=== PATIENT | female | born 1945 | race Caucasian/White ===

== ENCOUNTER 2018-10-02 12:17 | Emergency (ER) | payer MEDICARE ==
--- NOTE | 2018-10-02 13:17 | RAD ---
RIGHT ELBOW 4 VIEWS: HISTORY: Injury, fall, right elbow pain FINDINGS: Degenerative changes present. No acute fracture or dislocation is identified.
--- NOTE | 2018-10-02 13:24 | RAD ---
RIGHT HIP 2 VIEWS HISTORY: fall right hip pain FINDINGS: A right femoral head prostheses is present in good position and alignment. No evidence of fracture or dislocation or loosening is seen.
--- NOTE | 2018-10-02 13:27 | CT ---
CT BRAIN WITHOUT CONTRAST: HISTORY:Head injury, fall, headache COMPARISON:01/15/2014 FINDINGS: There are foci of decreased attenuation in the periventricular white matter, consistent with chronic small vessel ischemic disease. 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 No evidence of acute infarct, hemorrhage, midline shift or abnormal extra-axial fluid collections is seen. The ventricular size is appropriate and the basilar cisterns are patent. The bony calvarium is intact. The visualized paranasal sinuses and mastoid air cells are well aerated. IMPRESSION: No CT evidence of acute intracranial process.
[2018-10-02] MEDS ORDERED: Adacel (T-DAP) 0.5 ML SYRINGE ONE (13:30)
--- NOTE | 2018-10-02 13:33 | CT ---
CT CERVICAL SPINE WITH CORONAL AND SAGITTAL REFORMATIONS AND NO IV CONTRAST: HISTORY: Fall, neck pain FINDINGS: Multilevel degenerative changes are present. No fracture, subluxation or facet malalignment is identified. No prevertebral soft tissue swelling is apparent. There is a peripherally calcified 1 cm nodule in th e right lobe of the thyroid gland. IMPRESSION: No CT evidence for fracture or traumatic subluxation.
== END 2018-10-02 14:02 ==
LOC: ERS 12:17
DX: S51.012A Laceration without foreign body of left elbow, initial encounter (principal); S51.011A Laceration without foreign body of right elbow, initial encounter; F41.9 Anxiety disorder, unspecified; F32.9 Major depressive disorder, single episode, unspecified; E11.9 Type 2 diabetes mellitus without complications; I10 Essential (primary) hypertension; Z79.899 Other long term (current) drug therapy; W18.30XA Fall on same level, unspecified, initial encounter
CPT/HCPCS: 70450; 72125; 90471; 90715; 94760

== ENCOUNTER 2020-09-12 17:41 | Emergency (ER) | payer MEDICARE ==
[2020-09-12] MEDS ORDERED: Acetaminophen 500 MG TAB ONE (18:26)
== END 2020-09-12 20:15 ==
LOC: ERS 17:41
DX: S32.019A Unspecified fracture of first lumbar vertebra, initial encounter for closed fracture (principal); F03.90 Unspecified dementia, unspecified severity, without behavioral disturbance, psychotic disturbance, mood disturbance, and anxiety; Z79.899 Other long term (current) drug therapy; E11.9 Type 2 diabetes mellitus without complications; I10 Essential (primary) hypertension; G47.00 Insomnia, unspecified; M19.90 Unspecified osteoarthritis, unspecified site; D64.9 Anemia, unspecified; W19.XXXA Unspecified fall, initial encounter
CPT/HCPCS: 70450; 72125; 72131; 93005

== ENCOUNTER 2020-09-28 09:44 | Outpatient (CLI) | payer MEDICARE | END 2020-09-28 09:45 | disposition home or self-care (01) | LOC: TBSIIMAG 09:44 | PROVIDERS: ATTEND Neurological Surgery | DX: S32.009A Unspecified fracture of unspecified lumbar vertebra, initial encounter for closed fracture (principal); M47.816 Spondylosis without myelopathy or radiculopathy, lumbar region | CPT/HCPCS: 72100 ==

== ENCOUNTER 2021-06-19 13:24 | Inpatient (IN) | payer BC, MEDICARE ==
[~2021-06-19 13:24] MED LIST: Iopamidol-370 76% 500 ML 1 ML ONE
[2021-06-19 14:43] LABS: #Basophils 0.1 thou/uL (0.0-0.2); #Eosinphils 0.1 thou/uL (0.0-0.7); #Monocytes 0.7 thou/uL (0.11-0.59); #Neutrophils 6.1 thou/uL (1.40-6.50); %Basophils 0.7 % (0.0-1.0); %Eosinophils 1.4 % (0.0-10.0); %Lymphocytes 22.4 % (21.0-51.0); %Monocytes 7.4 % (0.0-10.0); %Neutrophils 68.2 % (42.0-75.0); Hemoglobin 15.9 g/dL (12.0-16.0); Mean Corpuscular HGB CONC 34.5 g/dL (32.0-36.0); Mean Corpuscular Hemoglobin 31.7 pg (27.0-31.0); Mean Corpuscular Volume 91.9 fL (78.0-98.0); Mean Platelet Volume 6.7 fL (7.4-10.4); Platelet Count 244 thou/uL (130-400); RBC Distribution Width 11.8 % (11.5-14.5); Red Blood Cell (RBC) Count 5.03 mill/uL (4.20-5.40); White Blood Cell (WBC) Count 8.9 thou/uL (4.8-10.8)
[2021-06-19 14:53] LABS: INR-International Normal Ratio 1.1; PTT 36.7 sec (22.9-36.1); Prothrombin Time 14.2 sec (12.0-14.7)
[2021-06-19 15:13] LABS: Acetaminophen Less than 6.0 mcg/mL (10.0-30.0); Alcohol Less than 10 mg/dL (Less than 10); Salicylate Less than 8.0 mg/dL (15.0-30.0)
[2021-06-19 15:14] LABS: ALT (SGPT) 29 U/L (8-55); AST (SGOT) 20 U/L (5-34); Albumin 4.5 g/dL (3.4-4.8); Alkaline Phosphatase 83 U/L (40-110); Anion Gap 13 mmol/L (10-20); BUN (Urea Nitrogen) 16 mg/dL (9.8-20.1); Bilirubin, Total 1.1 mg/dL (0.2-1.2); CK (CPK) 59 U/L (29-168); Calc. Creatinine Clearance 0 mL/min (70-130); Calcium 10.3 mg/dL (7.8-10.44); Carbon Dioxide 27 mmol/L (23-31); Chloride 103 mmol/L (98-107); Globulin 3.4 g/dL (2.4-3.5); Glucose 131 mg/dL (83-110); Potassium 3.4 mmol/L (3.5-5.1); Protein, Total 7.9 g/dL (5.8-8.1); Sodium 140 mmol/L (136-145)
[2021-06-19 15:19] LABS: Bacteria/HPF None Seen HPF (None Seen); Bilirubin Negative (Negative); Blood, Urine Negative (Negative); Clarity Clear (Clear); Glucose, Urine (Dipstick) Normal (Negative); Ketone, Urine 10 mg/dL (Negative); Leukocyte Negative Leu/uL (Negative); Nitrite Negative (Negative); Protein, Urine (Dipstick) 200 mg/dL (Neg-Trace); RBC/HPF 0-3 HPF (0-3); Specific Gravity, Urine 1.028 (1.002-1.036); Squamous Epithelial 0-3 HPF (0-3); Urobilinogen 3 mg/dL (Less than 2); WBC/HPF 0-3 HPF (0-3); pH, Urine 6.5 (5.0-9.0)
[2021-06-19 15:26] LABS: Amphetamine Not Detected (NotDetected); Barbiturates Screen Not Detected (NotDetected); Benzodiazepine Screen Not Detected (NotDetected); Cocaine Metabolite Screen Not Detected (NotDetected); Methadone Not Detected (NotDetected); Methamphetamine Not Detected (NotDetected); Opiate Screen Not Detected (NotDetected); Oxycodone Screen Not Detected (NotDetected); Phencyclidine (PCP) Not Detected (NotDetected); THC/Cannabinoid Screen Not Detected (NotDetected); Tricyclic Screen Not Detected (NotDetected)
[2021-06-19] MEDS ORDERED: Aspirin Chewable 81 MG TAB ONE (17:35)
[2021-06-19] MEDS ORDERED: Ondansetron PF 4 MG/2 ML Vial IVP PRN ×2 (21:30→22:16)
[2021-06-19] MEDS ORDERED: Acetaminophen 325 MG TAB PO PRN (21:30)
[2021-06-19] MEDS ORDERED: Ondansetron ODT 4 MG TAB SL PRN (21:30)
[2021-06-19 22:06] VITALS: BMI 20.5
[2021-06-19] MEDS ORDERED: Labetalol HCl 100 MG/20 ML VIAL SLOW IVP PRN (22:20)
[2021-06-19] MEDS ORDERED: Potassium Chloride 20 MEQ TAB PO SCH (23:30)
[2021-06-19 23:50] LABS: SARS-CoV-2 NAA Rapid Test Not Detected (NotDetected)
[2021-06-20] MEDS: Acetaminophen 325 MG TAB PO PRN ×2 (00:50→10:57)
[2021-06-20 01:01] LABS: Magnesium 1.6 mg/dL (1.6-2.6)
[2021-06-20] MEDS ORDERED: Dextrose 5% in Water 1,000 ML IV PRN (05:05)
[2021-06-20] MEDS ORDERED: Dextrose 50% Abboject 50 ML SYRINGE SLOW IVP PRN (05:05)
[2021-06-20] MEDS ORDERED: HumaLOG 300 UNITS/3 ML VIAL SC PRN (05:05)
[2021-06-20 06:05] LABS: #Eosinphils 0.1 thou/uL (0.0-0.7); #Lymphocytes 1.8 thou/uL (1.20-3.40); #Monocytes 0.7 thou/uL (0.11-0.59); #Neutrophils 5.3 thou/uL (1.40-6.50); %Basophils 0.6 % (0.0-1.0); %Eosinophils 1.8 % (0.0-10.0); %Lymphocytes 22.5 % (21.0-51.0); %Monocytes 8.3 % (0.0-10.0); %Neutrophils 66.9 % (42.0-75.0); Hemoglobin 15.8 g/dL (12.0-16.0); Mean Corpuscular HGB CONC 33.8 g/dL (32.0-36.0); Mean Corpuscular Hemoglobin 31.1 pg (27.0-31.0); Mean Corpuscular Volume 92.1 fL (78.0-98.0); Mean Platelet Volume 6.7 fL (7.4-10.4); Platelet Count 229 thou/uL (130-400); RBC Distribution Width 11.8 % (11.5-14.5); Red Blood Cell (RBC) Count 5.08 mill/uL (4.20-5.40)
[2021-06-20 06:09] LABS: Hemoglobin A1c 6.4 % (4.0-6.0)
[2021-06-20 06:27] LABS: Anion Gap 13 mmol/L (10-20); BUN (Urea Nitrogen) 16 mg/dL (9.8-20.1); Calc. Creatinine Clearance 58 mL/min (70-130); Calcium 9.5 mg/dL (7.8-10.44); Carbon Dioxide 26 mmol/L (23-31); Cardiac Risk 5.6 (Less than 4.5); Chloride 104 mmol/L (98-107); Cholesterol 248 mg/dl (< 200 Desired); Glucose 136 mg/dL (83-110); HDL Cholesterol 44 mg/dL (>60 Neg Risk); LDL Cholesterol, Calculated 174 mg/dL; Magnesium 1.6 mg/dL (1.6-2.6); Potassium 3.2 mmol/L (3.5-5.1); Sodium 140 mmol/L (136-145); Triglycerides 151 mg/dL (Less than 150)
[2021-06-20] MEDS ORDERED: Magnesium Oxide 400 MG TAB PO SCH (08:30)
[2021-06-20] MEDS ORDERED: Potassium Chloride 20 MEQ TAB PO SCH (08:30)
[2021-06-20] MEDS: Enoxaparin Sodium 40 MG/0.4 ML SYRINGE SC SCH (09:29)
[2021-06-20] MEDS ORDERED: Aspirin 300 MG Suppository PR SCH (13:30)
[2021-06-20] MEDS: 1/2 NS w/KCL 20 mEq 1,000 ML IV SCH (14:13)
[2021-06-20] MEDS: Metoprolol Tartrate 25 MG TAB PO SCH (20:23)
[2021-06-20] MEDS: hydrALAZINE 20 MG/ML VIAL SLOW IVP PRN (20:39)
[2021-06-20] MEDS ORDERED: Sterile Water 10 ML VIAL FS PRN (22:45)
[2021-06-20] MEDS ORDERED: OLANZapine 10 MG VIAL IM SCH (22:45)
[2021-06-20] MEDS: Acetaminophen 325 MG Suppository PR PRN (22:53)
[2021-06-21] MEDS: 1/2 NS w/KCL 20 mEq 1,000 ML IV SCH ×3 (01:34→20:31)
[2021-06-21 05:32] LABS: #Basophils 0.1 thou/uL (0.0-0.2); #Eosinphils 0.2 thou/uL (0.0-0.7); #Lymphocytes 2.4 thou/uL (1.20-3.40); #Monocytes 0.8 thou/uL (0.11-0.59); #Neutrophils 5.2 thou/uL (1.40-6.50); %Basophils 0.9 % (0.0-1.0); %Eosinophils 2.2 % (0.0-10.0); %Lymphocytes 27.2 % (21.0-51.0); %Monocytes 9.3 % (0.0-10.0); %Neutrophils 60.4 % (42.0-75.0); Hemoglobin 16.7 g/dL (12.0-16.0); Mean Corpuscular HGB CONC 32.9 g/dL (32.0-36.0); Mean Corpuscular Hemoglobin 30.8 pg (27.0-31.0); Mean Corpuscular Volume 93.7 fL (78.0-98.0); Mean Platelet Volume 6.8 fL (7.4-10.4); Platelet Count 256 thou/uL (130-400); Red Blood Cell (RBC) Count 5.42 mill/uL (4.20-5.40); White Blood Cell (WBC) Count 8.6 thou/uL (4.8-10.8)
[2021-06-21 05:53] LABS: Anion Gap 17 mmol/L (10-20); BUN (Urea Nitrogen) 14 mg/dL (9.8-20.1); Calc. Creatinine Clearance 59 mL/min (70-130); Calcium 9.8 mg/dL (7.8-10.44); Carbon Dioxide 19 mmol/L (23-31); Chloride 107 mmol/L (98-107); Glucose 99 mg/dL (83-110); Magnesium 1.7 mg/dL (1.6-2.6); Potassium 3.8 mmol/L (3.5-5.1); Sodium 139 mmol/L (136-145)
[2021-06-21] MEDS: Aspirin 300 MG Suppository PR SCH (13:52)
[2021-06-21] MEDS: Enoxaparin Sodium 40 MG/0.4 ML SYRINGE SC SCH (13:52)
[2021-06-21] MEDS: Metoprolol Tartrate 25 MG TAB PO SCH ×2 (14:17→20:12)
[2021-06-21] MEDS: Metoprolol Tartrate 5 MG/5 ML VIAL IVP PRN (20:19)
[2021-06-22] MEDS: 1/2 NS w/KCL 20 mEq 1,000 ML IV SCH ×3 (03:44→23:11)
[2021-06-22 06:22] LABS: #Basophils 0.1 thou/uL (0.0-0.2); #Eosinphils 0.2 thou/uL (0.0-0.7); #Lymphocytes 1.8 thou/uL (1.20-3.40); #Monocytes 0.7 thou/uL (0.11-0.59); #Neutrophils 4.3 thou/uL (1.40-6.50); %Basophils 1.1 % (0.0-1.0); %Eosinophils 2.4 % (0.0-10.0); %Lymphocytes 25.9 % (21.0-51.0); %Monocytes 9.5 % (0.0-10.0); %Neutrophils 61.1 % (42.0-75.0); Hemoglobin 15.6 g/dL (12.0-16.0); Mean Corpuscular HGB CONC 33.3 g/dL (32.0-36.0); Mean Corpuscular Hemoglobin 31.2 pg (27.0-31.0); Mean Corpuscular Volume 93.6 fL (78.0-98.0); Mean Platelet Volume 7.1 fL (7.4-10.4); Platelet Count 221 thou/uL (130-400); RBC Distribution Width 11.8 % (11.5-14.5); Red Blood Cell (RBC) Count 5.01 mill/uL (4.20-5.40); White Blood Cell (WBC) Count 6.9 thou/uL (4.8-10.8)
[2021-06-22 06:41] LABS: Anion Gap 15 mmol/L (10-20); BUN (Urea Nitrogen) 18 mg/dL (9.8-20.1); Calc. Creatinine Clearance 52 mL/min (70-130); Calcium 9.3 mg/dL (7.8-10.44); Carbon Dioxide 20 mmol/L (23-31); Glucose 96 mg/dL (83-110); Magnesium 1.6 mg/dL (1.6-2.6)
[2021-06-22 08:05] LABS: Chloride 108 mmol/L (98-107); Sodium 139 mmol/L (136-145)
[2021-06-22] MEDS: Enoxaparin Sodium 40 MG/0.4 ML SYRINGE SC SCH (09:38)
[2021-06-22] MEDS: Aspirin 300 MG Suppository PR SCH (09:39)
[2021-06-22] MEDS: Metoprolol Tartrate 25 MG TAB PO SCH ×2 (09:40→20:58)
[2021-06-22] MEDS: Metoprolol Tartrate 5 MG/5 ML VIAL IVP PRN (10:35)
[2021-06-22] MEDS: hydrALAZINE 20 MG/ML VIAL SLOW IVP PRN (12:22)
[2021-06-23] MEDS: Metoprolol Tartrate 25 MG TAB PO SCH ×2 (08:26→20:04)
[2021-06-23] MEDS: Aspirin 300 MG Suppository PR SCH (08:28)
[2021-06-23] MEDS: Enoxaparin Sodium 40 MG/0.4 ML SYRINGE SC SCH (08:28)
[2021-06-23] MEDS: 1/2 NS w/KCL 20 mEq 1,000 ML IV SCH ×2 (10:09→20:01)
[2021-06-23] MEDS: hydrALAZINE 20 MG/ML VIAL SLOW IVP PRN (16:01)
[2021-06-24] MEDS: Aspirin 300 MG Suppository PR SCH (08:59)
[2021-06-24] MEDS: Enoxaparin Sodium 40 MG/0.4 ML SYRINGE SC SCH (08:59)
[2021-06-24] MEDS: Metoprolol Tartrate 25 MG TAB PO SCH ×2 (10:08→21:25)
[2021-06-24] MEDS: 1/2 NS w/KCL 20 mEq 1,000 ML IV SCH ×2 (11:21→22:23)
[2021-06-25] MEDS ORDERED: Metoprolol Tartrate 5 MG/5 ML VIAL ONE (09:54)
[2021-06-25] MEDS ORDERED: Lidocaine 1% PF 5 ML VIAL ONE (09:54)
[2021-06-25] MEDS ORDERED: PROPOFOL 200 MG/20 ML VIAL ONE (09:54)
[2021-06-25] MEDS ORDERED: Aspirin Chewable 81 MG TAB PER TUBE SCH (12:15)
[2021-06-25] MEDS: Enoxaparin Sodium 40 MG/0.4 ML SYRINGE SC SCH (12:37)
[2021-06-25] MEDS: Metoprolol Tartrate 25 MG TAB PO SCH ×2 (13:23→21:05)
[2021-06-25] MEDS: Pantoprazole 40 MG VIAL IVP SCH (13:24)
[2021-06-25] MEDS: Aspirin 300 MG Suppository PR SCH (15:00)
[2021-06-25] MEDS: 1/2 NS w/KCL 20 mEq 1,000 ML IV SCH ×2 (15:00→15:03)
[2021-06-26 05:09] LABS: #Eosinphils 0.1 thou/uL (0.0-0.7); #Lymphocytes 2.2 thou/uL (1.20-3.40); #Monocytes 0.7 thou/uL (0.11-0.59); #Neutrophils 4.8 thou/uL (1.40-6.50); %Basophils 0.4 % (0.0-1.0); %Eosinophils 1.8 % (0.0-10.0); %Lymphocytes 28.4 % (21.0-51.0); %Monocytes 8.6 % (0.0-10.0); %Neutrophils 60.7 % (42.0-75.0); Hemoglobin 15.2 g/dL (12.0-16.0); Mean Corpuscular HGB CONC 33.1 g/dL (32.0-36.0); Mean Corpuscular Hemoglobin 31.5 pg (27.0-31.0); Mean Corpuscular Volume 95.1 fL (78.0-98.0); Mean Platelet Volume 7.9 fL (7.4-10.4); Platelet Count 204 thou/uL (130-400); RBC Distribution Width 11.6 % (11.5-14.5); Red Blood Cell (RBC) Count 4.84 mill/uL (4.20-5.40); White Blood Cell (WBC) Count 7.9 thou/uL (4.8-10.8)
[2021-06-26 05:24] LABS: Anion Gap 10 mmol/L (10-20); BUN (Urea Nitrogen) 18 mg/dL (9.8-20.1); Calc. Creatinine Clearance 61 mL/min (70-130); Calcium 9.1 mg/dL (7.8-10.44); Carbon Dioxide 27 mmol/L (23-31); Chloride 106 mmol/L (98-107); Glucose 113 mg/dL (83-110); Magnesium 1.8 mg/dL (1.6-2.6); Phosphorus 3.1 mg/dL (2.3-4.7); Potassium 3.6 mmol/L (3.5-5.1); Sodium 139 mmol/L (136-145)
[2021-06-26] MEDS ORDERED: Potassium Chloride 20 MEQ TAB PER TUBE SCH (08:15)
[2021-06-26] MEDS ORDERED: Magnesium Sulfate 2 GM in Sodium Chloride 0.9% 100 ML IVPB SCH (08:15)
[2021-06-26] MEDS ORDERED: Magnesium 2 GM/50 ML 2 GM in Premix Bag 1 BAG IVPB SCH (09:00)
[2021-06-26] MEDS ORDERED: Aspirin Chewable 81 MG TAB PER TUBE SCH (09:00)
[2021-06-26] MEDS: Metoprolol Tartrate 25 MG TAB PO SCH ×2 (09:21→22:24)
[2021-06-26] MEDS: HumaLOG 300 UNITS/3 ML VIAL SC PRN ×2 (11:08→17:22)
[2021-06-26] MEDS: Pantoprazole 40 MG VIAL IVP SCH (11:09)
[2021-06-26 14:43] LABS: SARS-CoV-2 PCR by NAA Not Detected (NotDetected)
[2021-06-26] MEDS: 1/2 NS w/KCL 20 mEq 1,000 ML IV SCH (15:17)
[2021-06-26] MEDS: D5W-AA 4.25% with LYTES 1,000 ML IV SCH (21:55)
[2021-06-27 05:45] LABS: #Eosinphils 0.2 thou/uL (0.0-0.7); #Monocytes 0.7 thou/uL (0.11-0.59); #Neutrophils 4.2 thou/uL (1.40-6.50); %Basophils 0.7 % (0.0-1.0); %Eosinophils 2.8 % (0.0-10.0); %Lymphocytes 28.5 % (21.0-51.0); %Monocytes 9.1 % (0.0-10.0); %Neutrophils 58.9 % (42.0-75.0); Hemoglobin 14.4 g/dL (12.0-16.0); Mean Corpuscular HGB CONC 32.7 g/dL (32.0-36.0); Mean Corpuscular Hemoglobin 31.7 pg (27.0-31.0); Mean Corpuscular Volume 96.7 fL (78.0-98.0); Mean Platelet Volume 7.4 fL (7.4-10.4); Platelet Count 194 thou/uL (130-400); RBC Distribution Width 11.6 % (11.5-14.5); Red Blood Cell (RBC) Count 4.54 mill/uL (4.20-5.40); White Blood Cell (WBC) Count 7.1 thou/uL (4.8-10.8)
[2021-06-27] MEDS: HumaLOG 300 UNITS/3 ML VIAL SC PRN ×2 (06:15→11:30)
[2021-06-27 06:16] LABS: Anion Gap 12 mmol/L (10-20); BUN (Urea Nitrogen) 16 mg/dL (9.8-20.1); Calc. Creatinine Clearance 61 mL/min (70-130); Calcium 9.1 mg/dL (7.8-10.44); Carbon Dioxide 29 mmol/L (23-31); Chloride 103 mmol/L (98-107); Glucose 164 mg/dL (83-110); Potassium 3.8 mmol/L (3.5-5.1); Sodium 140 mmol/L (136-145)
[2021-06-27] MEDS: Aspirin 300 MG Suppository PR SCH (08:31)
[2021-06-27] MEDS: Metoprolol Tartrate 25 MG TAB PO SCH ×2 (08:32→21:01)
[2021-06-27] MEDS: Pantoprazole 40 MG VIAL IVP SCH (11:30)
[2021-06-27] MEDS: D5W-AA 4.25% with LYTES 1,000 ML IV SCH (12:44)
[2021-06-27] MEDS: Labetalol HCl 100 MG/20 ML VIAL SLOW IVP PRN (22:10)
[2021-06-28] MEDS: D5W-AA 4.25% with LYTES 1,000 ML IV SCH ×2 (03:16→18:04)
[2021-06-28 05:44] LABS: #Eosinphils 0.2 thou/uL (0.0-0.7); #Lymphocytes 2.1 thou/uL (1.20-3.40); #Monocytes 0.7 thou/uL (0.11-0.59); #Neutrophils 4.3 thou/uL (1.40-6.50); %Basophils 0.5 % (0.0-1.0); %Eosinophils 2.8 % (0.0-10.0); %Lymphocytes 28.2 % (21.0-51.0); %Monocytes 10.1 % (0.0-10.0); %Neutrophils 58.5 % (42.0-75.0); Hemoglobin 14.5 g/dL (12.0-16.0); Mean Corpuscular HGB CONC 32.8 g/dL (32.0-36.0); Mean Corpuscular Hemoglobin 31.4 pg (27.0-31.0); Mean Corpuscular Volume 95.9 fL (78.0-98.0); Mean Platelet Volume 7.7 fL (7.4-10.4); Platelet Count 192 thou/uL (130-400); RBC Distribution Width 11.6 % (11.5-14.5); Red Blood Cell (RBC) Count 4.61 mill/uL (4.20-5.40); White Blood Cell (WBC) Count 7.3 thou/uL (4.8-10.8)
[2021-06-28] MEDS: HumaLOG 300 UNITS/3 ML VIAL SC PRN ×3 (05:48→17:27)
[2021-06-28 06:39] LABS: Anion Gap 10 mmol/L (10-20); BUN (Urea Nitrogen) 19 mg/dL (9.8-20.1); Calc. Creatinine Clearance 60 mL/min (70-130); Calcium 9.5 mg/dL (7.8-10.44); Carbon Dioxide 32 mmol/L (23-31); Chloride 101 mmol/L (98-107); Glucose 182 mg/dL (83-110); Potassium 4.1 mmol/L (3.5-5.1); Sodium 139 mmol/L (136-145)
[2021-06-28] MEDS: Aspirin 300 MG Suppository PR SCH (08:43)
[2021-06-28] MEDS: Metoprolol Tartrate 25 MG TAB PO SCH ×2 (08:44→20:57)
[2021-06-28] MEDS: Pantoprazole 40 MG VIAL IVP SCH (12:51)
[2021-06-28] MEDS: Nystatin 500,000 UNITS/5 ML UDCUP SSW SCH ×3 (14:34→20:57)
[2021-06-28] MEDS: Acetaminophen 325 MG Suppository PR PRN (17:16)
[2021-06-28] MEDS ORDERED: Nystatin 500,000 UNITS/5 ML UDCUP ONE (20:55)
[2021-06-28] MEDS: Labetalol HCl 100 MG/20 ML VIAL SLOW IVP PRN (20:57)
[2021-06-29] MEDS: HumaLOG 300 UNITS/3 ML VIAL SC PRN ×2 (06:11→17:33)
[2021-06-29] MEDS: Aspirin 300 MG Suppository PR SCH (09:09)
[2021-06-29] MEDS: Nystatin 500,000 UNITS/5 ML UDCUP SSW SCH ×4 (09:09→20:31)
[2021-06-29] MEDS: Metoprolol Tartrate 25 MG TAB PO SCH ×2 (09:10→20:39)
[2021-06-29] MEDS ORDERED: AA 4.25 %/CALCIUM/LYTES/D5W 2,000 ML IV SCH (11:30)
[2021-06-29] MEDS: Pantoprazole 40 MG VIAL IVP SCH (12:31)
[2021-06-29] MEDS: Metoprolol Tartrate 5 MG/5 ML VIAL IVP PRN (17:33)
[2021-06-29] MEDS: Bisacodyl 10 MG SUPP PR SCH (20:30)
[2021-06-30 05:25] LABS: #Basophils 0.1 thou/uL (0.0-0.2); #Eosinphils 0.2 thou/uL (0.0-0.7); #Lymphocytes 1.9 thou/uL (1.20-3.40); #Monocytes 0.7 thou/uL (0.11-0.59); #Neutrophils 4.8 thou/uL (1.40-6.50); %Basophils 0.8 % (0.0-1.0); %Eosinophils 3.1 % (0.0-10.0); %Lymphocytes 24.6 % (21.0-51.0); %Monocytes 8.5 % (0.0-10.0); Hemoglobin 14.8 g/dL (12.0-16.0); Mean Corpuscular Hemoglobin 31.3 pg (27.0-31.0); Mean Corpuscular Volume 94.9 fL (78.0-98.0); Mean Platelet Volume 7.6 fL (7.4-10.4); Platelet Count 233 thou/uL (130-400); RBC Distribution Width 11.6 % (11.5-14.5); Red Blood Cell (RBC) Count 4.74 mill/uL (4.20-5.40); White Blood Cell (WBC) Count 7.6 thou/uL (4.8-10.8)
[2021-06-30 05:43] LABS: ALT (SGPT) 37 U/L (8-55); AST (SGOT) 31 U/L (5-34); Albumin 3.8 g/dL (3.4-4.8); Alkaline Phosphatase 74 U/L (40-110); Anion Gap 10 mmol/L (10-20); BUN (Urea Nitrogen) 23 mg/dL (9.8-20.1); Bilirubin, Total 0.8 mg/dL (0.2-1.2); Calc. Creatinine Clearance 59 mL/min (70-130); Calcium 9.7 mg/dL (7.8-10.44); Carbon Dioxide 29 mmol/L (23-31); Chloride 102 mmol/L (98-107); Glucose 180 mg/dL (83-110); Magnesium 1.9 mg/dL (1.6-2.6); Phosphorus 4.2 mg/dL (2.3-4.7); Protein, Total 6.8 g/dL (5.8-8.1); Sodium 137 mmol/L (136-145)
[2021-06-30] MEDS ORDERED: Metoprolol Tartrate 5 MG/5 ML VIAL ONE (09:32)
[2021-06-30] MEDS ORDERED: Lidocaine 1% PF 5 ML VIAL ONE (09:32)
[2021-06-30] MEDS ORDERED: PROPOFOL 200 MG/20 ML VIAL ONE (09:32)
[2021-06-30] MEDS ORDERED: Aspirin Chewable 81 MG TAB PER TUBE SCH (11:15)
[2021-06-30] MEDS: Aspirin 300 MG Suppository PR SCH (11:53)
[2021-06-30] MEDS: Nystatin 500,000 UNITS/5 ML UDCUP SSW SCH ×4 (12:27→21:06)
[2021-06-30] MEDS: Metoprolol Tartrate 25 MG TAB PO SCH ×2 (12:40→21:06)
[2021-06-30] MEDS: Pantoprazole 40 MG VIAL IVP SCH (12:41)
[2021-06-30] MEDS: Acetaminophen 325 MG/10.15 ML UDCUP PER TUBE PRN ×2 (12:51→22:36)
[2021-06-30] MEDS ORDERED: Morphine 4 MG/ML VIAL SLOW IVP PRN (14:43)
[2021-06-30] MEDS: Bisacodyl 10 MG SUPP PR SCH (21:06)
[2021-06-30] MEDS: Atorvastatin Calcium 40 MG TAB PO SCH (21:06)
[2021-07-01] MEDS: Nystatin 500,000 UNITS/5 ML UDCUP SSW SCH ×4 (09:44→20:57)
[2021-07-01] MEDS: Aspirin Chewable 81 MG TAB PER TUBE SCH (09:45)
[2021-07-01] MEDS: Metoprolol Tartrate 25 MG TAB PO SCH ×2 (09:45→20:57)
[2021-07-01] MEDS: Pantoprazole 40 MG VIAL IVP SCH (13:37)
[2021-07-01] MEDS: Atorvastatin Calcium 40 MG TAB PO SCH (20:57)
[2021-07-01] MEDS: Bisacodyl 10 MG SUPP PR SCH (21:39)
[2021-07-02] MEDS: HumaLOG 300 UNITS/3 ML VIAL SC PRN (06:23)
[2021-07-02] MEDS: Aspirin Chewable 81 MG TAB PER TUBE SCH (09:46)
[2021-07-02] MEDS: Nystatin 500,000 UNITS/5 ML UDCUP SSW SCH ×4 (09:46→20:58)
[2021-07-02] MEDS: Metoprolol Tartrate 25 MG TAB PO SCH ×2 (09:47→20:57)
[2021-07-02] MEDS: Lansoprazole 3 MG/ML ORAL SUSPENSION PER TUBE SCH (13:03)
[2021-07-02] MEDS: Atorvastatin Calcium 40 MG TAB PO SCH (20:57)
[2021-07-02] MEDS: Bisacodyl 10 MG SUPP PR SCH (20:57)
[2021-07-03 05:39] LABS: Hemoglobin 14.1 g/dL (12.0-16.0); Mean Corpuscular HGB CONC 31.6 g/dL (32.0-36.0); Mean Corpuscular Hemoglobin 30.1 pg (27.0-31.0); Mean Corpuscular Volume 95.5 fL (78.0-98.0); Mean Platelet Volume 8.1 fL (7.4-10.4); Platelet Count 226 thou/uL (130-400); RBC Distribution Width 11.8 % (11.5-14.5); Red Blood Cell (RBC) Count 4.68 mill/uL (4.20-5.40); White Blood Cell (WBC) Count 8.4 thou/uL (4.8-10.8)
[2021-07-03 06:08] LABS: Anion Gap 14 mmol/L (10-20); BUN (Urea Nitrogen) 21 mg/dL (9.8-20.1); Calc. Creatinine Clearance 56 mL/min (70-130); Calcium 9.6 mg/dL (7.8-10.44); Carbon Dioxide 27 mmol/L (23-31); Chloride 101 mmol/L (98-107); Glucose 191 mg/dL (83-110); Potassium 3.8 mmol/L (3.5-5.1); Sodium 138 mmol/L (136-145)
[2021-07-03] MEDS: HumaLOG 300 UNITS/3 ML VIAL SC PRN ×2 (06:30→14:09)
[2021-07-03 07:48] LABS: Magnesium 1.7 mg/dL (1.6-2.6); Phosphorus 3.9 mg/dL (2.3-4.7)
[2021-07-03] MEDS: Amlodipine 5 MG TAB PO SCH (09:05)
[2021-07-03] MEDS: Nystatin 500,000 UNITS/5 ML UDCUP SSW SCH ×4 (09:06→21:52)
[2021-07-03] MEDS: Metoprolol Tartrate 25 MG TAB PO SCH ×2 (09:06→21:52)
[2021-07-03] MEDS: Aspirin Chewable 81 MG TAB PER TUBE SCH (09:06)
[2021-07-03] MEDS: Lansoprazole 3 MG/ML ORAL SUSPENSION PER TUBE SCH (10:10)
[2021-07-03] MEDS ORDERED: Docusate Sodium 100 MG/10 ML UDCUP PO PRN (12:21)
[2021-07-03 17:15] LABS: SARS-CoV-2 PCR by NAA Not Detected (NotDetected)
[2021-07-03] MEDS: Bisacodyl 10 MG SUPP PR SCH (21:52)
[2021-07-03] MEDS: Atorvastatin Calcium 40 MG TAB PO SCH (21:52)
[2021-07-04 05:10] LABS: Hemoglobin 13.6 g/dL (12.0-16.0); Mean Corpuscular HGB CONC 32.5 g/dL (32.0-36.0); Mean Corpuscular Volume 95.4 fL (78.0-98.0); Mean Platelet Volume 7.7 fL (7.4-10.4); Platelet Count 261 thou/uL (130-400); RBC Distribution Width 11.6 % (11.5-14.5); Red Blood Cell (RBC) Count 4.37 mill/uL (4.20-5.40); White Blood Cell (WBC) Count 7.9 thou/uL (4.8-10.8)
[2021-07-04 05:36] LABS: Anion Gap 10 mmol/L (10-20); BUN (Urea Nitrogen) 19 mg/dL (9.8-20.1); Calc. Creatinine Clearance 52 mL/min (70-130); Calcium 9.6 mg/dL (7.8-10.44); Carbon Dioxide 32 mmol/L (23-31); Chloride 101 mmol/L (98-107); Glucose 185 mg/dL (83-110); Magnesium 1.9 mg/dL (1.6-2.6); Phosphorus 4.2 mg/dL (2.3-4.7); Potassium 3.8 mmol/L (3.5-5.1); Sodium 139 mmol/L (136-145)
[2021-07-04] MEDS: HumaLOG 300 UNITS/3 ML VIAL SC PRN ×3 (06:23→17:21)
[2021-07-04] MEDS: Lansoprazole 3 MG/ML ORAL SUSPENSION PER TUBE SCH (09:09)
[2021-07-04] MEDS: Metoprolol Tartrate 25 MG TAB PO SCH ×2 (09:09→21:52)
[2021-07-04] MEDS: Amlodipine 5 MG TAB PO SCH (09:10)
[2021-07-04] MEDS: Nystatin 500,000 UNITS/5 ML UDCUP SSW SCH ×4 (09:10→21:52)
[2021-07-04] MEDS: Aspirin Chewable 81 MG TAB PER TUBE SCH (09:10)
[2021-07-04] MEDS: Atorvastatin Calcium 40 MG TAB PO SCH (21:52)
[2021-07-04] MEDS: Bisacodyl 10 MG SUPP PR SCH (21:52)
[2021-07-05] MEDS: Labetalol HCl 100 MG/20 ML VIAL SLOW IVP PRN (05:31)
[2021-07-05] MEDS: HumaLOG 300 UNITS/3 ML VIAL SC PRN (05:57)
[2021-07-05] MEDS: Metoprolol Tartrate 25 MG TAB PO SCH (09:41)
[2021-07-05] MEDS: Nystatin 500,000 UNITS/5 ML UDCUP SSW SCH ×2 (09:41→13:28)
[2021-07-05] MEDS: Aspirin Chewable 81 MG TAB PER TUBE SCH (09:41)
[2021-07-05] MEDS: Amlodipine 5 MG TAB PO SCH (09:43)
[2021-07-05] MEDS: Lansoprazole 3 MG/ML ORAL SUSPENSION PER TUBE SCH (09:49)
[2021-07-05] MEDS: Acetaminophen 325 MG/10.15 ML UDCUP PER TUBE PRN (11:48)
[2021-07-05 12:13] VITALS: BP 145/78; TEMP 98.9
== END 2021-07-05 13:15 | DRG 64 ==
LOC: ERS 13:24 → ERHOLD 17:48 → NEURO 21:32 → OBSVTOIN 06-20 12:54
PROVIDERS: ADMIT Internal Medicine; ATTEND Internal Medicine
PROC: 0DJ08ZZ Inspection of Upper Intestinal Tract, Via Natural or Artificial Opening Endoscopic (ICD-10-PCS; 2021-06-25)
PROC: 0DH63UZ Insertion of Feeding Device into Stomach, Percutaneous Approach (ICD-10-PCS; principal; 2021-06-30)
DX: I63.9 Cerebral infarction, unspecified (principal); Z66 Do not resuscitate; R29.707 NIHSS score 7; Z20.822 Contact with and (suspected) exposure to COVID-19; G93.41 Metabolic encephalopathy; I47.1 Supraventricular tachycardia; L76.02 Intraoperative hemorrhage and hematoma of skin and subcutaneous tissue complicating other procedure; F03.90 Unspecified dementia, unspecified severity, without behavioral disturbance, psychotic disturbance, mood disturbance, and anxiety; I10 Essential (primary) hypertension; R47.81 Slurred speech; R29.810 Facial weakness; K29.80 Duodenitis without bleeding; R13.12 Dysphagia, oropharyngeal phase; Y84.8 Other medical procedures as the cause of abnormal reaction of the patient, or of later complication, without mention of misadventure at the time of the procedure; M19.90 Unspecified osteoarthritis, unspecified site; G47.00 Insomnia, unspecified; E87.6 Hypokalemia; E11.65 Type 2 diabetes mellitus with hyperglycemia; R21 Rash and other nonspecific skin eruption; Z53.8 Procedure and treatment not carried out for other reasons; E83.42 Hypomagnesemia; D73.5 Infarction of spleen; Z78.1 Physical restraint status; Z86.73 Personal history of transient ischemic attack (TIA), and cerebral infarction without residual deficits; Z79.899 Other long term (current) drug therapy; Z88.8 Allergy status to other drugs, medicaments and biological substances; Z90.89 Acquired absence of other organs
CPT/HCPCS: 36415; 36416; 70496; 70498; 70551; 71045; 74018; 74177; 74230; 80048; 80053; 80061; 80306; 80307; 81003; 81015; 82140; 82550; 82607; 82746; 83036; 83735; 84100; 84443; 84484; 85025; 85027; 85610; 85730; 86850; 86900; 86901; 87086; 93005; 93306; 95712; 95819; 95957; 96372; C9113; G0378; J0360; J1650; J1815; J2358; J2704; J3475; J3480; Q9967; U0002; U0003; U0005

== ENCOUNTER 2023-10-23 08:06 | Outpatient (CLI) | payer MEDICARE | END 2023-10-23 08:07 | disposition home or self-care (01) | LOC: CT 08:06 | PROVIDERS: ATTEND Physician Assistant Medical | DX: Z43.1 Encounter for attention to gastrostomy (principal); R13.12 Dysphagia, oropharyngeal phase; R11.2 Nausea with vomiting, unspecified; R05.9 Cough, unspecified; K82.8 Other specified diseases of gallbladder; N20.0 Calculus of kidney | CPT/HCPCS: 71260; 74177; 82565 ==

== ENCOUNTER 2024-02-06 06:35 | Day surgery (SDC) | payer MEDICARE ==
[2024-01-24 12:56] VITALS: BMI 21.4
[2024-02-06] MEDS ORDERED: LevoFLOXacin D5W 500 mg (100 mL) BAG ONE (07:39)
[2024-02-06] MEDS ORDERED: fentaNYL 50 mcg/mL 1 mL Vial ONE (08:09)
[2024-02-06] MEDS ORDERED: PROPOFOL 20 ML ONE (08:11)
[2024-02-06] MEDS ORDERED: Ondansetron PF 4 MG/2 ML Vial ONE (08:57)
[2024-02-06] MEDS ORDERED: PHENYLEPHRINE-NS 100 MCG/ML 10 ML SYRINGE ONE (08:57)
[2024-02-06] MEDS ORDERED: diphenhydrAMINE 50 MG/ML VIAL ONE (09:56)
[2024-02-06] MEDS ORDERED: Iopamidol 30 ML ONE (10:15)
[2024-02-06] MEDS ORDERED: Phenazopyridine HCl 100 MG TAB ONE (10:47)
[2024-02-06] MEDS ORDERED: Oxybutynin 5 MG TAB ONE (10:47)
== END 2024-02-06 14:30 ==
LOC: SDC 06:35
PROVIDERS: ATTEND Urology
PROC: 0TC78ZZ Extirpation of Matter from Left Ureter, Via Natural or Artificial Opening Endoscopic (ICD-10-PCS; principal; 2024-02-06)
PROC: 0T778DZ Dilation of Left Ureter with Intraluminal Device, Via Natural or Artificial Opening Endoscopic (ICD-10-PCS; 2024-02-06)
DX: N20.0 Calculus of kidney (principal); D64.9 Anemia, unspecified; F41.9 Anxiety disorder, unspecified; E11.9 Type 2 diabetes mellitus without complications; F32.A Depression, unspecified; K21.9 Gastro-esophageal reflux disease without esophagitis; I10 Essential (primary) hypertension; E78.00 Pure hypercholesterolemia, unspecified; G47.00 Insomnia, unspecified; F03.90 Unspecified dementia, unspecified severity, without behavioral disturbance, psychotic disturbance, mood disturbance, and anxiety; I48.0 Paroxysmal atrial fibrillation; I63.89 Other cerebral infarction; Z98.890 Other specified postprocedural states; Z88.8 Allergy status to other drugs, medicaments and biological substances; Z79.4 Long term (current) use of insulin
CPT/HCPCS: 52356; 74018; 74420; 82365; C1747; C1769; C2617; J1200; J1956; J2405; J2704; J3010; Q9967; 36416; 88300

== ENCOUNTER 2024-02-26 11:11 | Outpatient (CLI) | payer MEDICARE ==
[2024-02-26 12:49] LABS: #Basophils 0.06 10x3/uL (0.0-0.2); %Basophils 0.7 % (0.0-1.0); %Eosinophils 5.6 % (0.0-10.0); %Lymphocytes 17.1 % (21.0-51.0); %Monocytes 9.7 % (0.0-10.0); %Neutrophils 66.6 % (42.0-75.0); Hemoglobin 16.1 g/dL (12.0-16.0); Mean Corpuscular HGB CONC 32.2 g/dL (32.0-36.0); Mean Corpuscular Volume 93.3 fL (78.0-98.0); Mean Platelet Volume 10.9 fL (7.4-10.4); Platelet Count 242 10x3/uL (130-400); RBC Distribution Width 13.2 % (11.5-14.5); Red Blood Cell (RBC) Count 5.36 mill/uL (4.20-5.40)
[2024-02-26 13:03] LABS: Prothrombin Time 13.1 sec (12.0-14.7)
[2024-02-26 13:04] LABS: PTT 31.1 sec (22.9-36.1)
[2024-02-26 13:21] LABS: Anion Gap 13 mmol/L (10-20); BUN (Urea Nitrogen) 14 mg/dL (9.8-20.1); Calc. Creatinine Clearance 0 mL/min (70-130); Carbon Dioxide 29 mmol/L (23-31); Chloride 103 mmol/L (98-107); Estimated GFR 89; Glucose 134 mg/dL (83-110); Potassium 4.3 mmol/L (3.5-5.1); Sodium 141 mmol/L (136-145)
== END 2024-02-26 11:12 | disposition home or self-care (01) ==
LOC: LABBT 11:11
PROVIDERS: ATTEND Urology
DX: Z01.818 Encounter for other preprocedural examination (principal); E11.9 Type 2 diabetes mellitus without complications; N20.0 Calculus of kidney; R35.0 Frequency of micturition; I63.89 Other cerebral infarction; Z79.4 Long term (current) use of insulin
CPT/HCPCS: 80048; 85025; 85610; 85730; 93005; 93010

== ENCOUNTER 2024-02-27 00:20 | Emergency (ER) | payer MEDICARE | END 2024-02-27 03:55 | LOC: ERS 00:20 | DX: Z43.1 Encounter for attention to gastrostomy (principal); E11.9 Type 2 diabetes mellitus without complications; I10 Essential (primary) hypertension; E78.5 Hyperlipidemia, unspecified; E87.6 Hypokalemia; Z86.73 Personal history of transient ischemic attack (TIA), and cerebral infarction without residual deficits; Z79.84 Long term (current) use of oral hypoglycemic drugs; Z79.899 Other long term (current) drug therapy | CPT/HCPCS: 74018; 99284 ==